=== PATIENT | female | born 1945 | race Caucasian/White ===

== ENCOUNTER 2016-05-21 23:54 | Emergency (ER) | payer MEDICARE ==
--- NOTE | 2016-05-22 00:51 | ERPHSYRPT ---
- History of Present Illness Time Seen by Provider: 05/22/16 00:35 Source: patient, family (FRIEND) Exam Limitations: no limitations Patient Subjective Stated Complaint: Pt was seen in [place] on Thursday for weakness in the legs, was dx with low blood sugar. Sts saw Dr. Erickson for this today and her insulin dose was changed. Pt sts feels general malaise and leg weakness. Triage Nursing Assessment: Pt alert, oriented, answers all questions appropriately. Skin p/w/d, resps non-labored. Pt able to transfer self from wheelchair to bed with assist x 1. Physician History: FOR THE PAST 2 WEEKS PT HAS HAD WEAKNESS IN THE LEGS. 17 DAYS AGO PT TRIPPED ON UNEVEN SIDEWALK IN [place] F[place]ING FORWARD ON HER FACE WITH RESULTANT BRUISING OF THE FACE AND BELOW THE NOSE. SINCE THEN PT HAS FALLEN 7 TIMES WITH BRUISING ON THE RIGHT LEG AND BOTH KNEES AND ABRASIONS ON THE LEFT KNEE. PT ALSO C/O A CHRONIC COUGH FOR THE PAST 6 MONTHS. PT DENIES CHEST PAIN, SHORTNESS OF AIR, ABDOMINAL PAIN, FEVER. Allergies/Adverse Reactions: No Known Drug Allergies Allergy (Verified 05/22/16 00:46) Home Medications: Aspirin [Luz Chewable] 81 mg PO DAILY 05/22/16 [History] Ferrous Sulfate [Iron] 0 mg PO DAILY 05/22/16 [History] Insulin Aspart [NovoLOG Insulin] 20 unit SQ 05/22/16 [History] Insulin Detemir [Levemir] 100 unit SQ HS 05/22/16 [History] Omeprazole 20 MG [Prilosec 20 mg] 0 mg PO DAILY 05/22/16 [History] Potassium Chloride 10 meq PO DAILY 05/22/16 [History] Simvastatin 0 mg PO DAILY 05/22/16 [History] Immunizations Up to Date: Yes - Review of Systems Constitutional: No Fever Respiratory: Cough (CHRONIC), No Dyspnea Cardiac: No Chest Pain Abdominal/Gastrointestinal: No Abdominal Pain Musculoskeletal: Fall (MULTIPLE IN THE PAST 17 DAYS) Skin: Other (BRUISING ON RIGHT LEG AND FACE; ABRASIONS ON LEFT KNEE.) All Other Systems: Reviewed and Negative - Social History Smoking Status: Never smoker Exposure to second hand smoke: No Patient Lives Alone: No - Nursing Vital Signs Nursing Vital Signs: Initial Vital Signs Pulse Rate 90 Respiratory Rate 18 Blood Pressure [] 127/67 - Physical Exam General Appearance: alert Eye Exam: PERRL/EOMI Ears, Nose, Throat Exam: dry mucous membranes Neck Exam: normal inspection Respiratory Exam: lungs clear Cardiovascular Exam: normal heart sounds Gastrointestinal/Abdomen Exam: soft, normal bowel sounds Back Exam: normal range of motion Extremity Exam: normal range of motion Neurologic Exam: alert, cooperative Skin Exam: abrasion (HEALING ABRASIONS TO LEFT KNEE; FAINT ECCHYMOSIS OF ANTERIOLATERAL ASPECT OF RIGHT LEG; MILD NON-TENDER ERYTHEMA AND MINIMAL EDEMA BELOW NOSE.) SpO2 Interpretation: normal SpO2: 95 Oxygen Delivery: Room Air - Course Nursing assessment & vital signs reviewed: Yes EKG Interpreted by Me: RATE (88), Sinus Rhythm, NORMAL AXIS, NORMAL INTERVALS, ST Elev (III ) - Radiology Exams Chest X-ray Interpretation: Interpreted by me (PULMONARY NODULE LEFT UPPER LOBE) - CT Exams Head CT Interpretation: Tele-radiologist Report (NORMAL HEAD/BRAIN CT) Cervical Spine CT Interpretation: Tele-radiologist Report (NO EVIDENCE OF ACUTE OSSEOUS INJURY. INCOMPLETELY VISUALIZED LEFT UPPER LOBE PULMONARY NODULE.) Maxillofacial Bones CT Interpretation: Tele-radiologist Report (AGE INDETERMINATE NONDISPLACED LEFT NASAL FRACTURE.) Ordered Tests: Active Orders 24 hr Category Date Time Status Accucheck STAT Care 05/22/16 03:24 Active Teacher Resource STAT Care 05/22/16 00:48 Active EKG-ER Only STAT Care 05/22/16 00:48 Active EKG-ER Only STAT Care 05/22/16 01:58 Active IV Insertion STAT Care 05/22/16 00:48 Active Pulse Oximetry (ED) STAT Care 05/22/16 00:48 Active CERVICAL SPINE WO CONTRAST [CT] Stat Exams 05/22/16 00:47 Taken CHEST 1 VIEW (PORTABLE) Stat Exams 05/22/16 00:48 Taken FACIAL BONES WO CONTRAST [CT] Stat Exams 05/22/16 00:46 Taken HEAD WITHOUT CONTRAST [CT] Stat Exams 05/22/16 00:46 Taken KNEE (1 OR 2 VIEW) Stat Exams 05/22/16 00:45 Taken KNEE (3 VIEWS) Stat Exams 05/22/16 00:45 Taken LOWER LEG Stat Exams 05/22/16 00:45 Taken AMYLASE Stat Lab 05/22/16 00:53 Completed BLOOD CULTURE Stat Lab 05/22/16 03:12 Received CBC W DIFF Stat Lab 05/22/16 00:53 Completed CMP Stat Lab 05/22/16 00:53 Completed CULTURE,URINE Stat Lab 05/22/16 03:01 Received LIPASE Stat Lab 05/22/16 00:53 Completed Lactic Acid Urgent Lab 05/22/16 03:15 Completed MAGNESIUM Stat Lab 05/22/16 00:53 Completed Manual Differential NC Stat Lab 05/22/16 00:53 Completed PROTIME WITH INR Stat Lab 05/22/16 00:53 Completed PTT Stat Lab 05/22/16 00:53 Completed TROPONIN Q3H Lab 05/22/16 00:53 Completed TROPONIN Q3H Lab 05/22/16 04:00 Ordered TROPONIN Q3H Lab 05/22/16 07:00 Ordered TROPONIN Q3H Lab 05/22/16 10:00 Ordered TROPONIN Q3H Lab 05/22/16 13:00 Ordered UA W/ MICROSCOPIC Stat Lab 05/22/16 02:43 Completed Urine Triage Profile Stat Lab 05/22/16 02:43 Completed Medication Summary Generic Name Dose Route Start Last Admin Trade Name Freq PRN Reason Stop Dose Admin Sodium Chloride 1,000 mls @ 100 mls/hr 05/22/16 01:00 05/22/16 01:06 Sodium Chloride 0.9% 1000 Ml IV 06/21/16 00:59 100 mls/hr .Q10H MICHAEL Administration Sodium Chloride 1,000 mls @ 999 mls/hr 05/22/16 03:28 Sodium Chloride 0.9% 1000 Ml IV 05/22/16 04:28 .Q1H1M STA Discontinued Medications Generic Name Dose Route Start Last Admin Trade Name Freq PRN Reason Stop Dose Admin Sodium Chloride Confirm 05/22/16 01:03 Sodium Chloride 0.9% 1000 Ml Administered 05/22/16 01:04 Dose 1,000 mls @ ud .ROUTE .STK-MED ONE Sodium Chloride 1,000 mls @ 999 mls/hr 05/22/16 01:36 05/22/16 02:28 Sodium Chloride 0.9% 1000 Ml IV 05/22/16 02:36 999 mls/hr .Q1H1M STA Administration Sodium Chloride Confirm 05/22/16 02:27 Sodium Chloride 0.9% 1000 Ml Administered 05/22/16 02:28 Dose 1,000 mls @ ud .ROUTE .STK-MED ONE Ceftriaxone Sodium/Dextrose 50 mls @ 100 mls/hr 05/22/16 02:58 05/22/16 03:06 Rocephin 1 Gm-D5w 50 Ml Bag IV 05/22/16 03:27 100 mls/hr STAT ONE Administration Ceftriaxone Sodium/Dextrose Confirm 05/22/16 03:04 Rocephin 1 Gm-D5w 50 Ml Bag Administered 05/22/16 03:05 Dose 50 mls @ ud IV .STK-MED ONE Insulin Human Regular 10 unit 05/22/16 01:37 05/22/16 02:28 Novolin R IV 05/22/16 01:38 10 unit STAT ONE Administration Insulin Human Regular Confirm 05/22/16 02:26 Novolin R Administered 05/22/16 02:27 Dose 10 unit .ROUTE .STK-MED ONE Insulin Human Regular 8 unit 05/22/16 03:36 Novolin R IV 05/22/16 03:37 STAT ONE Lab/Rad Data: Laboratory Result Diagrams 05/22/16 00:53 05/22/16 00:53 Laboratory Results 05/22/16 05/22/16 05/22/16 Range/Units 03:15 02:43 02:43 WBC (4.0-10.5) K/mm3 RBC (4.1-5.4) M/mm3 Hgb (12.0-16.0) gm/dl Hct (35-47) % MCV (78-100) fl MCH (26-32) pg MCHC (32-36) g/dl RDW (11.5-14.0) % Plt Count (150-450) K/mm3 MPV (6-9.5) fl Segmented Neutrophils (36.0-66.0) % Band Neutrophils (0.0-2.0) % Lymphocytes (Manual) (24-44) % Monocytes (Manual) (0.0-12.0) % Differential Comment Toxic Granulation Dohle Bodies Platelet Estimate (NORMAL) INR (0.8-3.0) PTT (25.3-37.0) SECONDS Sodium (136-145) mEq/L Potassium (3.5-5.1) mEq/L Chloride (98-107) mEq/L Carbon Dioxide (21-32) mEq/L Anion Gap (5-15) MEQ/L BUN (9-20) mg/dL Creatinine (0.55-1.30) mg/dl Estimated GFR ML/MIN Glucose (70-110) MG/DL Lactic Acid 3.0 H (0.4-2.0) Calcium (8.5-10.1) mg/dL Magnesium (1.8-2.4) mg/dL Total Bilirubin (0.2-1.0) mg/dL AST (15-37) U/L ALT (12-78) U/L Alkaline Phosphatase (46-116) U/L Troponin I (0.000-0.056) ng/ml Serum Total Protein (6.4-8.2) gm/dL Albumin (3.4-5.0) g/dL Amylase (25-115) U/L Lipase (73-393) U/L Ur Collection Type CLEAN CATCH Urine Color YELLOW (YELLOW) Urine Appearance CLOUDY (CLEAR) Urine pH 5.0 (5-6) Ur Specific Leland 1.015 (1.005-1.025) Urine Protein >=300 (Negative) Urine Glucose (UA) >=1000 (NEGATIVE) mg/dL Urine Ketones NEGATIVE (NEGATIVE) Urine Nitrite NEGATIVE (NEGATIVE) Urine Bilirubin NEGATIVE (NEGATIVE) Urine Urobilinogen 0.2 (0-1) mg/dL Urine WBC (Auto) SMALL (NEGATIVE) Urine RBC (Auto) MODERATE (0-5) Wilber/ul Urine Microscopic RBC 5-10 (0-2) /HPF Urine Microscopic WBC 50-100 (0-5) /HPF Ur Epithelial Cells MODERATE (FEW) /HPF Amorphous Crystals MODERATE (NEGATIVE) /HPF Urine Bacteria PACKED (NEGATIVE) /HPF Granular Casts 0-2 (NEGATIVE) /LPF Urine Opiates Level NEG. (NEGATIVE) Ur Methadone NEG. (NEGATIVE) Urine Barbiturates NEG. (NEGATIVE) Ur Phencyclidine (PCP) NEG. (NEGATIVE) Urine Amphetamine NEG. (NEGATIVE) U Benzodiazepine Level NEG. (NEGATIVE) Urine Cocaine NEG. (NEGATIVE) Urine Marijuana (THC) NEG. (NEGATIVE) Specimen Received 05/22/16 0245 05/22/16 05/22/16 05/22/16 Range/Units 00:53 00:53 00:53 WBC (4.0-10.5) K/mm3 RBC (4.1-5.4) M/mm3 Hgb (12.0-16.0) gm/dl Hct (35-47) % MCV (78-100) fl MCH (26-32) pg MCHC (32-36) g/dl RDW (11.5-14.0) % Plt Count (150-450) K/mm3 MPV (6-9.5) fl Segmented Neutrophils (36.0-66.0) % Band Neutrophils (0.0-2.0) % Lymphocytes (Manual) (24-44) % Monocytes (Manual) (0.0-12.0) % Differential Comment Toxic Granulation Dohle Bodies Platelet Estimate (NORMAL) INR 1.25 (0.8-3.0) PTT 32.8 (25.3-37.0) SECONDS Sodium 127 L (136-145) mEq/L Potassium 5.4 H (3.5-5.1) mEq/L Chloride 94 L (98-107) mEq/L Carbon Dioxide 16.0 L (21-32) mEq/L Anion Gap 23.2 H (5-15) MEQ/L BUN 42 H (9-20) mg/dL Creatinine 4.30 H (0.55-1.30) mg/dl Estimated GFR 11 ML/MIN Glucose 459 H (70-110) MG/DL Lactic Acid (0.4-2.0) Calcium 8.2 L (8.5-10.1) mg/dL Magnesium 2.0 (1.8-2.4) mg/dL Total Bilirubin 0.1 L (0.2-1.0) mg/dL AST 12 L (15-37) U/L ALT < 6 L (12-78) U/L Alkaline Phosphatase 134 H (46-116) U/L Troponin I < 0.017 (0.000-0.056) ng/ml Serum Total Protein 7.1 (6.4-8.2) gm/dL Albumin 2.7 L (3.4-5.0) g/dL Amylase 37 (25-115) U/L Lipase 133 (73-393) U/L Ur Collection Type Urine Color (YELLOW) Urine Appearance (CLEAR) Urine pH (5-6) Ur Specific Leland (1.005-1.025) Urine Protein (Negative) Urine Glucose (UA) (NEGATIVE) mg/dL Urine Ketones (NEGATIVE) Urine Nitrite (NEGATIVE) Urine Bilirubin (NEGATIVE) Urine Urobilinogen (0-1) mg/dL Urine WBC (Auto) (NEGATIVE) Urine RBC (Auto) (0-5) Wilber/ul Urine Microscopic RBC (0-2) /HPF Urine Microscopic WBC (0-5) /HPF Ur Epithelial Cells (FEW) /HPF Amorphous Crystals (NEGATIVE) /HPF Urine Bacteria (NEGATIVE) /HPF Granular Casts (NEGATIVE) /LPF Urine Opiates Level (NEGATIVE) Ur Methadone (NEGATIVE) Urine Barbiturates (NEGATIVE) Ur Phencyclidine (PCP) (NEGATIVE) Urine Amphetamine (NEGATIVE) U Benzodiazepine Level (NEGATIVE) Urine Cocaine (NEGATIVE) Urine Marijuana (THC) (NEGATIVE) Specimen Received 05/22/16 Range/Units 00:53 WBC 21.8 H (4.0-10.5) K/mm3 RBC 2.99 L (4.1-5.4) M/mm3 Hgb 9.1 L (12.0-16.0) gm/dl Hct 28.2 L (35-47) % MCV 94.3 (78-100) fl MCH 30.4 (26-32) pg MCHC 32.3 (32-36) g/dl RDW 13.6 (11.5-14.0) % Plt Count 318 (150-450) K/mm3 MPV 8.9 (6-9.5) fl Segmented Neutrophils 76 H (36.0-66.0) % Band Neutrophils 9 H (0.0-2.0) % Lymphocytes (Manual) 8 L (24-44) % Monocytes (Manual) 7 (0.0-12.0) % Differential Comment NORMAL Toxic Granulation 1+ Dohle Bodies 1+ Platelet Estimate NORMAL (NORMAL) INR (0.8-3.0) PTT (25.3-37.0) SECONDS Sodium (136-145) mEq/L Potassium (3.5-5.1) mEq/L Chloride (98-107) mEq/L Carbon Dioxide (21-32) mEq/L Anion Gap (5-15) MEQ/L BUN (9-20) mg/dL Creatinine (0.55-1.30) mg/dl Estimated GFR ML/MIN Glucose (70-110) MG/DL Lactic Acid (0.4-2.0) Calcium (8.5-10.1) mg/dL Magnesium (1.8-2.4) mg/dL Total Bilirubin (0.2-1.0) mg/dL AST (15-37) U/L ALT (12-78) U/L Alkaline Phosphatase (46-116) U/L Troponin I (0.000-0.056) ng/ml Serum Total Protein (6.4-8.2) gm/dL Albumin (3.4-5.0) g/dL Amylase (25-115) U/L Lipase (73-393) U/L Ur Collection Type Urine Color (YELLOW) Urine Appearance (CLEAR) Urine pH (5-6) Ur Specific Leland (1.005-1.025) Urine Protein (Negative) Urine Glucose (UA) (NEGATIVE) mg/dL Urine Ketones (NEGATIVE) Urine Nitrite (NEGATIVE) Urine Bilirubin (NEGATIVE) Urine Urobilinogen (0-1) mg/dL Urine WBC (Auto) (NEGATIVE) Urine RBC (Auto) (0-5) Wilber/ul Urine Microscopic RBC (0-2) /HPF Urine Microscopic WBC (0-5) /HPF Ur Epithelial Cells (FEW) /HPF Amorphous Crystals (NEGATIVE) /HPF Urine Bacteria (NEGATIVE) /HPF Granular Casts (NEGATIVE) /LPF Urine Opiates Level (NEGATIVE) Ur Methadone (NEGATIVE) Urine Barbiturates (NEGATIVE) Ur Phencyclidine (PCP) (NEGATIVE) Urine Amphetamine (NEGATIVE) U Benzodiazepine Level (NEGATIVE) Urine Cocaine (NEGATIVE) Urine Marijuana (THC) (NEGATIVE) Specimen Received - Progress Discussed with : Charmaine Erickson (ACCEPTED PT FOR TRANSFER TO [facility] A DIRECT ADMISSION([id number]).) - Departure Time of Disposition: 03:46 Departure Disposition: Transfer ([facility]) Clinical Impression: WEAKNESS, RENAL FAILURE, LEUKOCYTOSIS R/O SEPSIS, ANEMIA, UTI, DM, LEFT NASAL FRACTURE, CONTUSION OF KNEES AND RIGHT LEG, FREQUENT FALLS Condition: Fair Critical Care Time: Yes Critical Care Time(excluding separately billable procedures): 30-74 minutes Referrals: VIPIN ERICKSON [Primary Care Provider] -
[2016-05-22 00:57] LABS: Mean Cell Volume 94.3 fl (78-100); Mean Corpuscular Hemoglobin 30.4 pg (26-32); Mean Platelet Volume 8.9 fl (6-9.5); Platelet Count 318 K/mm3 (150-450); Red Blood Count 2.99 M/mm3 (4.1-5.4); Red Cell Distribution Width 13.6 % (11.5-14.0); White Blood Count 21.8 K/mm3 (4.0-10.5)
[2016-05-22] MEDS ORDERED: Sodium Chloride 0.9% 1000 ML 1,000 ML IV SCH (01:00)
[2016-05-22] MEDS ORDERED: Sodium Chloride 0.9% 1000 ML 1,000 ML ONE ×2 (01:03→02:27)
[2016-05-22 01:04] LABS: INR 1.25 (0.8-3.0); PROTIME 13.9 SECONDS (9.95-12.35)
[2016-05-22 01:07] LABS: PTT 32.8 SECONDS (25.3-37.0)
[2016-05-22 01:14] LABS: ALBUMIN 2.7 g/dL (3.4-5.0); ALKALINE PHOSPHATASE 134 U/L (46-116); ANION GAP 23.2 MEQ/L (5-15); BILIRUBIN,TOTAL 0.1 mg/dL (0.2-1.0); BLOOD UREA NITROGEN 42 mg/dL (9-20); CHLORIDE 94 mEq/L (98-107); Glucose 459 MG/DL (70-110); LIPASE 133 U/L (73-393); Potassium 5.4 mEq/L (3.5-5.1); SGOT/AST 12 U/L (15-37); SODIUM 127 mEq/L (136-145); Total Protein 7.1 gm/dL (6.4-8.2)
[2016-05-22 01:26] LABS: SGPT/ALT < 6 U/L (12-78)
[2016-05-22 01:30] LABS: BAND 9 % (0.0-2.0); Dohle Bodies 1+; Platelet Estimate NORMAL (NORMAL); Total Cells Counted 100; Toxic Granulation 1+
[2016-05-22] MEDS ORDERED: Sodium Chloride 0.9% 1000 ML 1,000 ML IV STA ×2 (01:36→03:28)
[2016-05-22] MEDS ORDERED: NovoLIN R IV ONE ×2 (01:37→03:36)
[2016-05-22] MEDS ORDERED: NovoLIN R ONE (02:26)
[2016-05-22] MEDS ORDERED: ROCEPHIN 1 Gm-D5w 50 ml Bag** 50 ML IV ONE ×2 (02:58→03:04)
[2016-05-22 02:59] LABS: Collection Type CLEAN CATCH
[2016-05-22 03:00] LABS: Bacteria PACKED /HPF (NEGATIVE); COMPLETE URINE MICROSCOPIC? YES; Epithelial Cells MODERATE /HPF (FEW); GRANULAR CASTS 0-2 /LPF (NEGATIVE); WBC 50-100 /HPF (0-5)
[2016-05-22 05:15] VITALS: BP 121/63; PULSE 89; O2SAT 94
--- NOTE | 2016-05-22 08:56 | XRAY ---
Indication: Pain. Frequent falls for 2 weeks. Multiple contiguous axial images obtained through the head without contrast. Comparison: None. Normal appearing brain parenchyma, ventricles, and bony calvarium for patient's age. Visualized paranasal sinuses and mastoid air cells are pneumatized and clear. Impression: No acute intracranial abnormalities. Comment: Preliminary interpretation was made by [facility]. No discrepancy. CTDI 50.53
--- NOTE | 2016-05-22 08:58 | XRAY ---
Indication: Chin and nasal pain. Frequent falls for 2 weeks. Multiple contiguous axial images obtained through the facial bones. Sagittal and coronal reformatted images obtained. Comparison: None. Patient is edentulous. Nondepressed fracture involving the left nasal bone presumed old as there is no adjacent soft tissue swelling. Elsewhere no acute fracture, suspicious bony lesions, or radiopaque foreign body. Orbits including roof, patel, and floor intact. Paranasal sinuses are pneumatized and clear. Visualized noncontrasted soft tissues are unremarkable. CT head and CT cervical spine reported separately. Impression: Probable old left nasal bone fracture. No acute facial bone fracture. Comment: Preliminary interpretation was made by [facility]. No discrepancy. CTDI 59.47
--- NOTE | 2016-05-22 09:04 | XRAY ---
Indication: Chin and nasal pain. Frequent falls for 2 weeks. Multiple contiguous axial images obtained through the cervical spine. Sagittal and coronal reformatted images obtained. Comparison: None. Axial images negative for acute fracture, suspicious bony lesions, or spinal canal stenosis. Minimal bilateral atlantoaxial degenerative changes. Minimal C5-C6 endplate and right uncal spurring. Mild left C2-C3 degenerative facet arthropathy. Sagittal and coronal reformatted images demonstrates normal cervical alignment. Disc spaces maintained. No acute compression fracture, subluxation, or jumped facet. Normal appearing craniocervical junction. Visualized noncontrasted soft tissues demonstrates mild carotid calcifications bilaterally. Left lung apex demonstrates partially visualized [address] head and CT facial bones reported separately. Impression: 1. No acute fracture/subluxation. 2. Minimal multilevel degenerative changes. 3. Incidental left apical noncalcified pulmonary nodule probably granulomatous in this demographic. Comment: Preliminary interpretation was made by [facility]. No discrepancy. CTDI 129.99
--- NOTE | 2016-05-22 09:04 | XRAY ---
Indication: Frequent falls. Comparison: None Portable apical lordotic chest markedly underinflated accentuating the cardiopulmonary structures. A few calcified granulomas largest in the left apex. Remaining lungs clear. Heart is still within normal limits for AP portable technique. Bony thorax intact with minimal osteopenia, degenerative changes, and mild double curvature scoliosis. Impression: Nonacute underinflated chest with chronic features.
--- NOTE | 2016-05-22 09:23 | XRAY ---
Indication: Anterior bruising. Frequent falls. Comparison: None 3 views of the left knee demonstrates mild osteopenia. No other bony, articular, or soft tissue abnormalities.
--- NOTE | 2016-05-22 09:23 | XRAY ---
Indication: Anterior bruising. Frequent falls. Comparison: None AP and crosstable lateral right knee demonstrates mild osteopenia and tiny superior patellar spurring. No other bony, articular, or soft tissue abnormalities.
--- NOTE | 2016-05-22 09:23 | XRAY ---
Indication: Anterior bruising. Frequent falls. Comparison: None 2 views of the right lower leg demonstrates mild osteopenia, heel spurs, old fracture of the distal tibia posteriorly, and partially visualized midfoot orthopedic fixation hardware. No other bony, articular, or soft tissue abnormalities.
== END 2016-05-22 05:02 | disposition short-term general hospital (02) ==
LOC: ED 23:54
DX: R53.1 Weakness (principal); N19 Unspecified kidney failure; D72.829 Elevated white blood cell count, unspecified; D64.9 Anemia, unspecified; N39.0 Urinary tract infection, site not specified; E11.9 Type 2 diabetes mellitus without complications; S02.2XXA Fracture of nasal bones, initial encounter for closed fracture; S80.01XA Contusion of right knee, initial encounter; S80.11XA Contusion of right lower leg, initial encounter; Z91.81 History of falling; S00.33XA Contusion of nose, initial encounter; S00.83XA Contusion of other part of head, initial encounter; W01.10XA Fall on same level from slipping, tripping and stumbling with subsequent striking against unspecified object, initial encounter; R05 Cough; Z79.4 Long term (current) use of insulin; Z79.899 Other long term (current) drug therapy
CPT/HCPCS: 93041; 96372; 99285; 36000; 82962; 93005; 87040; 82150; 81000; 85610; 85730; 36415; 83690; 87186; 83735; 80307; 85025; 87077; 80053; 84484; 87086; 71010; 73560; 73562; 73590; 70450; 72125; 70486; 83605; A9270; J0696